=== PATIENT | male | born 1965 | race Caucasian/White ===

== ENCOUNTER 2020-01-15 16:58 | Emergency (ER) | payer SELFPAY ==
[~2020-01-15] VITALS: Ht 180.3 cm; Wt 96.2 kg
--- OUTSIDE RECORDS SUMMARY | 2020-01-15 17:07 | XMS REPORT | Continuity of Care Document ---
Author Author [facility] Organization [facility] Address [address] [place] [address] [address]. [address] [place] [address] Phone Unavailable Care Team Providers Care Capacity Planning Analyst Name Role Phone NO, PCP PCP Unavailable Mili HOANG Attshayna Unavailable Problems This patient has no known problems. Allergies, Adverse Reactions, Alerts This patient has no known allergies or adverse reactions. Medications This patient has no known medications. Procedures Procedure Date / Time Performed Performing Clinician Sour e Computed tomography of abdomen and pelvis with contrast 2018 00:00:00 DANNY HOANG [facility] Encounters Start Date/Time End Date/Time Encounter [facility] Ad[facility] ID Source 2019-03-03 20:44:00 2019-03-04 03:06:00 Departed Emergency Room 1 DANNY HOANG [facility] [id number] [facility] Results Test Description Test Time Test Comments Results Result Comments Source CT ABDOMEN/PELVIS W 2019-03-04 01:50:00 [facility] [address] [place] [id number] Patient Name: ANNALISE BIANCHI MR #: [id number] : 1965 Age/Sex: 53/M Req #: [id number] Adm Physician: Ordered by: DANNY HOANG MD Report #: [id number] Location: ER Room/Bed: Procedure: [id number] CT/CT ABDOMEN/PELVIS W Exam Date: 03/04/19 Exam Time: 50 REPORT STATUS: Signed EXAM: CT Abdomen and Pelvis WITH contrast INDICATION: Periumbilical pain COMPARISON: None. TECHNIQUE: Abdomen and pelvis were scanned utilizing a multidetector helical scanner from the lung base to the pubic symphysis after administration of IV contrast. Coronal and sagittal reformations were obtained. Routine protocol was performed. Scan was performed when during portal venous phase. IV CONTRAST: 100 mL of Isovue 370 ORAL CONTRAST: Water COMPLICATIONS: None RADIATION DOSE: Total DLP: 662 mGy*cm Estimated effective dose: (DLP x 0.015 x size factor) mSv CTDIvol has been reviewed. It is below the limits set by the Radiation Protocol Committee (RPC). Dose modulation, iterative reconstruction, and/or weight based adjustment of the mA/kV was utilized to reduce the radiation dose to as low as reasonably achievable. FINDINGS: LINES and TUBES: None. LOWER THORAX: Left lateral basilar scarring/atelectasis with elevated left hemidiaphragm. HEPATOBILIARY: Diffuse decreased hepatic attenuation. The liver is enlarged, measures 19.9 cm in craniocaudal dimension in the right midclavicular line. A 0.9 cm hypodensity in the right hepatic lobe is too small to characterize, likely benign. No biliary ductal dilation. GALLBLADDER: The gallbladder is distended and measures up to 9.8 cm in long axis. No radio-opaque stones or sludge. No wall thickening. No pericholecystic fluid. SPLEEN: No splenomegaly. PANCREAS: No focal masses or ductal dilatation. ADRENALS: No adrenal nodules KIDNEYS/URETERS: Kidneys enhance symmetrically. No hydronephrosis. No cystic or solid mass lesions. No stones. GI TRACT: No abnormal distention, wall thickening, or evidence of bowel obstruction. Appendix is normal. PELVIC ORGANS/BLADDER: Unremarkable. LYMPH NODES: No lymphadenopathy. VESSELS: Atherosclerotic calcifications in the aorta and and major branches. PERITONEUM / RETROPERITONEUM: No free air or fluid. BONES: Advanced degenerative changes in the lower lumbar spine with minimal anterolisthesis of L4 on L5 where there is probable canal and foraminal stenosis. SOFT TIS SUES: Fat-containing right inguinal hernia without evidence of stranding in relation.. IMPRESSION: 1. Distended gallbladder without other evidence of cholecystitis. Consider right upper quadrant ultrasound for further evaluation. 2. Advanced degenerative changes in the lower lumbar spine with minimal anterolisthesis of L4 on L5 where there is probable canal and foraminal stenosis. 3. Hepatomegaly with hepatic steatosis. Signed by: Goyo Maurer DO on 03/04/2019 1:58 AM Dictated By: GOYO MAURER DO 7 Transcribed By: JACLYN on 03/04/19157 COPY TO: DANNY HOANG MD Urine WBC 2019-03-04 01:46:00 Test Item Urine WBC (test code = 5821-4) 6-10 0-5 H [facility] [id number] 01:46:00* Test Item Value Reference Range Interpretation Comments Urine RBC (test code = 05087-8) 6-10 0-5 H [facility] Fzbimmia2037-72-35 01:46:00* Test Item Value Reference Range Interpretation Comments Urine Bacteria (test code = 01660-2) FEW NONE [facility] Epithelial Joluh8374-86-38 01:46:00 * Test Item Value Reference Range Interpretation Comments Urine Epithelial Cells (test code = 03275-4) FEW NONE [facility] Hyaline Tqbqy2679-63-42 01:46:00* Test Item Value Reference Range Interpretation Comments Urine Hyaline Casts (test code = 84378-9) 2-5 0-1 H [facility] Ymgrz7792-08-06 01:40:00* Test Item Value Reference Range Interpretation Comments Urine Color (test code = 5778-6) ORANGE YELLOW H [facility] Hrofhlh9997-38-26 01:40:00* Test Item Value Reference Range Interpretation Comments Urine Clarity (test code = 33092-8) SL CLOUDY CLEAR H [facility] Specific Mreudhl9082-63-65 01:40:00 * Test Item Value Reference Range Interpretation Comments Urine Specific [place] (test code = 5811-5) 1.025 1.010-1.02 5 [facility] nT1637-02-45 01:40:00* Test Item Value Reference Range Interpretation Comments Urine pH (test code = 19660-3) 6.5 5-7 [facility] Leukocyte Swxmkatt4866-68-75 01:40:00* Test Item Value Reference Range Interpretation Comments Urine Leukocyte Esterase (test code = 59149-1) NEGATIVE NEGATIV E [facility] Mbtpnfo5315-18-67 01:40:00* Test Item Value Reference Range Interpretation Comments Urine Nitrite (test code = 39649-6) NEGATIVE NEGATIVE [facility] Jltvbzr9090-52-90 01:40:00* Test Item Value Reference Range Interpretation Comments Urine Protein (test code = 24522-0) 3+ NEGATIVE H [facility] Glucose (UA)2019-03-04 01:40:00* Test Item Value Reference Range Interpretation Comments Urine Glucose (UA) (test code = 03591-5) NEGATIVE NEGATIVE [facility] Qffdgpk1031-66-93 01:40:00* Test Item Value Reference Range Interpretation Comments Urine Ketones (test code = 85421-1) 1+ NEGATIVE H [facility] Coijokugkugm5822-43-96 01:40:00* Test Item Value Reference Range Interpretation Comments Urine Urobilinogen (test code = 59290-0) 0.2 0.2-1 [facility] Xrtcvedbg7400-26-00 01:40:00* Test Item Value Reference Range Interpretation Comments Urine Bilirubin (test code = 1977-8) MODERATE NEGATIVE [facility] Virow1947-52-02 01:40:00* Test Item Value Reference Range Interpretation Comments Urine Blood (test code = 48139-9) 1+ NEGATIVE [facility] CampusEthyl Alcohol Savmv8683-27-64 22:09:00* Test Item Value Reference Range Interpretation Comments Ethyl Alcohol Level (test code = 5643-2) < 10.0 0.0-10.0 [facility] CampusCreatine Kinase BW8883-04-63 22:06:00* Test Item Value Reference Range Interpretation Comments Creatine Kinase MB (test code = 32349-7) 3.70 0-5.0 [facility] CampusTroponin [id number] 22:06:00* Test Item Value Reference Range Interpretation Comments Troponin I (test code = BGZ6593) 0.060 0-0.300 [facility] Vtbst5387-76-76 21:59:00* Test Item Value Reference Range Interpretation Comments Sodium Level (test code = 2951-2) 143 136-145 [facility] CampusPotassium Wgmgs8245-36-95 21:59:00* Test Item Value Reference Range Interpretation Comments Potassium Level (test code = 2823-3) 4.3 3.5-5.1 [facility] CampusChloride Nayjl7361-61-14 21:59:00* Test Item Value Reference Range Interpretation Comments Chloride Level (test code = 2075-0) 99 98-107 [facility] CampusCarbon Dioxide Tgozt5772-13-11 21:59:00* Test Item Value Reference Range Interpretation Comments Carbon Dioxide Level (test code = 2028-9) 25 22-29 [facility] CampusAnion Dkl3115-32-44 21:59:00* Test Item Value Reference Range Interpretation Comments Anion Gap (test code = 81337-3) 23.3 8-16 H [facility] CampusBlood Urea Ntmwmzdc2477-64-64 21:59:00* Test Item Value Reference Range Interpretation Comments Blood Urea Nitrogen (test code = 3094-0) 14 7- [facility] CampusCreatinine2019-10-24 21:59:00* Test Item Value Reference Range Interpretation Comments Creatinine (test code = 2160-0) 1.06 0.72-1.25 [facility] CampusBUN/Creatinine Cudde7782-37-54 21:59:00* Test Item Value Reference Range Interpretation Comments BUN/Creatinine Ratio (test code = 3097-3) 13 6- [facility] CampusEstimat Glomerular Filtration Rate 2019-03-03 21:59:00* Test Item Value Reference Range Interpretation Comments Estimat Glomerular Filtration Rate (test code = 722904647) > 60 >60 Ranges were taken from the National Kidney Disease Education Program and the [facility] Kidney Foundation literature.Reference ranges:60 or greater: Zhpqir24-40 ( for 3 consecutive months): Chronic kidney disease 15 or less: Kidney failureThe Hospitals of Providence East CampusGlucose Lwspx5061-65-84 21:59:00* Test Item Value Reference Range Interpretation Comments Glucose Level (test code = NKE8983) 119 74-118 H [facility] CampusCalcium Pwjqo2652-89-81 21:59:00* Test Item Value Reference Range Interpretation Comments Calcium Level (test code = 30624-4) 11.4 8.4-10.2 H [facility] CampusTotal Ezhnlypem1883-52-36 21:59:00* Test Item Value Reference Range Interpretation Comments Total Bilirubin (test code = 1975-2) 1.4 0.2-1.2 H [facility] CampusAspartate Amino Transf (AST/SGOT) 2019-03-03 21:59:00* Test Item Value Reference Range Interpretation Comments Aspartate Amino Transf (AST/SGOT) (test code = Aspartate Amino Transf (AST/SGOT)) 102 5-34 H [facility] CampusAlanine Aminotransferase (ALT/SGPT) 2019-03-03 21:59:00* Test Item Value Reference Range Interpretation Comments Alanine Aminotransferase (ALT/SGPT) (test code = 1742-6) 40 0-55 [facility] CampusTotal Iagbdec2434-52-32 21:59:00* Test Item Value Reference Range Interpretation Comments Total Protein (test code = 2885-2) 8.6 6.5-8.1 H [facility] CampusAlbumin2019-10-24 21:59:00* Test Item Value Reference Range Interpretation Comments Albumin (test code = 1751-7) 4.3 3.5-5.0 [facility] CampusGlobulin2019-10-24 21:59:00* Test Item Value Reference Range Interpretation Comments Globulin (test code = 25108-1) 4.3 2.3-3.5 H [facility] CampusAlbumin/Globulin Voxnj8522-69-31 21:59:00 * Test Item Value Reference Range Interpretation Comments Albumin/Globulin Ratio (test code = 1759-0) 1.0 0.8-2.0 [facility] CampusAlkaline Bvufhiqemun8578-44-01 21:59:00* Test Item Value Reference Range Interpretation Comments Alkaline Phosphatase (test code = 6768-6) 92 40-150 [facility] CampusCreatine Onxqzm7818-73-39 21:59:00* Test Item Value Reference Range Interpretation Comments Creatine Kinase (test code = 2157-6) 137 30-200 [facility] CampusAmylase Naiud0418-90-50 21:59:00* Test Item Value Reference Range Interpretation Comments Amylase Level (test code = 1798-8) 102 25-125 [facility] CampusLipase2019-10-24 21:59:00* Test Item Value Reference Range Interpretation Comments Lipase (test code = 3040-3) 29 8-78 [facility] CampusProthrombin Cefk8112-86-58 21:53:00* Test Item Value Reference Range Interpretation Comments Prothrombin Time (test code = 5902-2) 13.2 11.9-14.5 [facility] CampusProthromb Time International Ratio 2019-03-03 21:53:00* Test Item Value Reference Range Interpretation Comments Prothromb Time International Ratio (test code = 6301-6) 0.95 Oral Anticoagulant Therapy INR Values:1. Low Intensity Therapy 1.5 - 2.02 . Moderate Intensity Therapy 2.0 - 3.03. High Intensity Therapy(1) 2.5 - 3. 54. High Intensity Therapy(2) 3.0 - 4.05. Panic Value INR > 5.0 [facility] CampusActivated Partial Thromboplast Time 2019-03-03 21:53:00* Test Item Value Reference Range Interpretation Comments Activated Partial Thromboplast Time (test code = 49530-1) 28.1 23.8-35.5 [facility] CampusWhite Blood Qwlwu2072-48-20 21:44:00* Test Item Value Reference Range Interpretation Comments White Blood Count (test code = 6690-2) 5.65 4.8-10.8 [facility] CampusRed Blood Ewpxn0460-32-88 21:44:00* Test Item Value Reference Range Interpretation Comments Red Blood Count (test code = 789-8) 3.58 4.3-5.7 L [facility] CampusHemoglobin2019-10-24 21:44:00* Test Item Value Reference Range Interpretation Comments Hemoglobin (test code = 14407-1) 13.9 14.0-18.0 L [facility] CampusHematocrit2019-10-24 21:44:00* Test Item Value Reference Range Interpretation Comments Hematocrit (test code = 4544-3) 39.2 38.2-49.6 [facility] CampusMean Corpuscular Vlceoa5830-73-31 21:44:00* Test Item Value Reference Range Interpretation Comments Mean Corpuscular Volume (test code = 787-2) 109.5 81-99 H [facility] CampusMean Corpuscular Rkgvwbgpvt6222-83-96 21:44:00* Test Item Value Reference Range Interpretation Comments Mean Corpuscular Hemoglobin (test code = 785-6) 38.8 28-32 H [facility] Corpuscular Hemoglobin Concent 2019-03-03 21:44:00* Test Item Value Reference Range Interpretation Comments Mean Corpuscular Hemoglobin Concent (test code = 786-4) 35.5 31-35 H [facility] CampusRed Cell Distribution Uqlhy1189-79-52 21:44:00* Test Item Value Reference Range Interpretation Comments Red Cell Distribution Width (test code = 45396-5) 13.0 11.7 -14.4 [facility] CampusPlatelet Wdedt8336-44-01 21:44:00* Test Item Value Reference Range Interpretation Comments Platelet Count (test code = 777-3) 99 140-360 L [facility] CampusNeutrophils (%) (Auto)2019-03-03 21:44:00 * Test Item Value Reference Range Interpretation Comments Neutrophils (%) (Auto) (test code = 61440-2) 80.7 38.7-80.0 H [facility] CampusLymphocytes (%) (Auto)2019-03-03 21:44:00 * Test Item Value Reference Range Interpretation Comments Lymphocytes (%) (Auto) (test code = 736-9) 8.1 18.0-39.1 L [facility] CampusMonocytes (%) (Auto)2019-03-03 21:44:00* Test Item Value Reference Range Interpretation Comments Monocytes (%) (Auto) (test code = 5905-5) 8.8 4.4-11.3 [facility] CampusEosinophils (%) (Auto)2019-03-03 21:44:00 * Test Item Value Reference Range Interpretation Comments Eosinophils (%) (Auto) (test code = 713-8) 1.4 0.0-6.0 [facility] CampusBasophils (%) (Auto)2019-03-03 21:44:00* Test Item Value Reference Range Interpretation Comments Basophils (%) (Auto) (test code = 706-2) 0.5 0.0-1.0 [facility] CampusIM GRANULOCYTES %2019-03-03 21:44:00* Test Item Value Reference Range Interpretation Comments IM GRANULOCYTES % (test code = IM GRANULOCYTES %) 0.5 0.0- 1.0 [facility] CampusNeutrophils # (Auto)2019-03-03 21:44:00* Test Item Value Reference Range Interpretation Comments Neutrophils # (Auto) (test code = 751-8) 4.6 2.1-6.9 [facility] CampusLymphocytes # (Auto)2019-03-03 21:44:00* Test Item Value Reference Range Interpretation Comments Lymphocytes # (Auto) (test code = 66533-7) 0.5 1.0-3.2 L [facility] CampusMonocytes # (Auto)2019-03-03 21:44:00* Test Item Value Reference Range Interpretation Comments Monocytes # (Auto) (test code = 742-7) 0.5 0.2-0.8 [facility] CampusEosinophils # (Auto)2019-03-03 21:44:00* Test Item Value Reference Range Interpretation Comments Eosinophils # (Auto) (test code = 711-2) 0.1 0.0-0.4 [facility] CampusBasophils # (Auto)2019-03-03 21:44:00* Test Item Value Reference Range Interpretation Comments Basophils # (Auto) (test code = 704-7) 0.0 0.0-0.1 [facility] CampusAbsolute Immature Granulocyte (auto 2019-03-03 21:44:00* Test Item Value Reference Range Interpretation Comments Absolute Immature Granulocyte (auto (pili t code = Absolute Immature Granulocyte (auto) 0.03 0-0.1 [facility]
[2020-01-15] MEDS ORDERED: SODIUM CHLORIDE 0.9% 1000ML 1,000 ML IV STA (17:12)
[2020-01-15 17:31] LABS: BASOPHILS % 0.8 % (0.0-1.0); EOSINOPHILS # (AUTO) 0.1 (0.0-0.4); EOSINOPHILS % 1.2 % (0.0-6.0); HEMATOCRIT 33.5 % (38.2-49.6); HEMOGLOBIN 11.8 g/dL (14.0-18.0); LYMPHOCYTES # (AUTO) 0.9 (1.0-3.2); LYMPHOCYTES % 17.7 % (18.0-39.1); MEAN CORPUSCULAR HEMOGLOBIN 38.6 pg (28-32); MEAN CORPUSCULAR HGB CONC 35.2 g/dL (31-35); MEAN CORPUSCULAR VOLUME 109.5 fL (81-99); MONOCYTES # (AUTO) 0.5 (0.2-0.8); MONOCYTES % 9.5 % (4.4-11.3); NEUTROPHILS # (AUTO) 3.5 (2.1-6.9); NEUTROPHILS % 70.2 % (38.7-80.0); PLATELET COUNT 79 x10e3/uL (140-360); RED BLOOD COUNT 3.06 x10e6/uL (4.3-5.7); RED CELL DISTRIBUTION WIDTH 12.7 % (11.7-14.4)
[2020-01-15 17:44] LABS: INR 0.95; PROTHROMBIN TIME 13.2 seconds (11.9-14.5)
[2020-01-15 17:52] LABS: ALANINE AMINOTRANSFERASE 18 IU/L (0-55); ALBUMIN 4.2 g/dL (3.5-5.0); ALBUMIN/GLOBULIN RATIO 1.2 (0.8-2.0); ALKALINE PHOSPHATASE 95 IU/L (40-150); ANION GAP 21.6 mmol/L (8-16); BLOOD UREA NITROGEN 9 mg/dL (7-26); BUN/CREATININE RATIO 8 (6-25); CARBON DIOXIDE 18 mmol/L (22-29); CHLORIDE 100 mmol/L (98-107); CREATINE KINASE 126 IU/L (30-200); EST GLOMERULAR FILTRATION RATE > 60 ML/MIN (60-); GLUCOSE 100 mg/dL (74-118); POTASSIUM 3.6 mmol/L (3.5-5.1); SODIUM 136 mmol/L (136-145)
--- NOTE | 2020-01-15 17:57 | Diagnostic Imaging Report ---
EXAMINATION: CHEST SINGLE (PORTABLE) INDICATION: near-syncope COMPARISON: None FINDINGS: AP view TUBES and LINES: None. . LUNGS/PLEURA: Lungs are well inflated. There is left basilar opacity which could be due to effusion or atelectasis. Pneumonia could be considered in appropriate clinical setting. There is no evidence of pulmonary edema.. There is no pneumothorax. HEART AND MEDIASTINUM: The cardiomediastinal silhouette is unremarkable. BONES AND SOFT TISSUES: No acute osseous lesion. Soft tissues are unremarkable. UPPER ABDOMEN: No free air under the diaphragm. IMPRESSION: Left basilar opacity could be due to effusion or atelectasis. Pneumonia could be considered in appropriate clinical setting Signed by: Kevan Frausto MD on 01/15/2020 5:53 PM
[2020-01-15 18:04] LABS: CALCIUM 8.8 mg/dL (8.4-10.2)
--- NOTE | 2020-01-15 18:04 | Diagnostic Imaging Report ---
Examination: CT head without contrast Clinical Indication: ^N ^NEAR-SYNCOPE, SLURRED SPEECH. Technique: Transaxial noncontrast images from the skull base through the vertex were obtained. Sagittal and coronal reformatted images were done. Dose modulation, iterative reconstruction, and/or weight based adjustment of the mA/kV was utilized to reduce the radiation dose to as low as reasonably achievable. Comparison: None. Findings: Scalp: No abnormalities. Bones: Intact. No fractures. No blastic or lytic lesions. Brain sulci: Moderate to severe volume loss for patient's age. Ventricles: No hydrocephalus. . Extra-axial space: No abnormalities. Parenchyma: There are subtle patchy areas of low-attenuation within subcortical and periventricular white matter, nonspecific, but could represent microvascular ischemic disease. No masses, hemorrhage, or acute or chronic cortical based vascular insults. Suprasellar region: No abnormalities. Craniocervical junction: The foramen magnum is patent. No Chiari one malformation. Impression: 1. No acute intracranial finding. 2. Moderate to severe volume loss and chronic microvascular ischemic change. Signed by: Dr. Carrie Grant M.D. on 01/15/2020 6:01 PM
[2020-01-15 18:05] LABS: MAGNESIUM 1.1 MG/DL (1.3-2.1)
[2020-01-15 18:07] LABS: EOSINOPHILS % (MANUAL) 2 % (0-7); LYMPHOCYTES % (MANUAL) 19 % (19-48); MONOCYTES % (MANUAL) 7 % (3.4-9.0); NEUTROPHILS % (MANUAL) 71 % (40-74)
[2020-01-15 18:08] LABS: PLATELET ESTIMATE SLIGHTLY DECREASED; PLATELET MORPHOLOGY COMMENT NORMAL
--- NOTE | 2020-01-15 18:08 | Emergency Department Note ---
History of Present Illnes History of Present Illness Chief Complaint: General Medicine Complaints History of Present Illness This is a 54 year old male working outside today, drank a couple drinks, then helped neighbor with a generator outside, says his legs "felt like jelly" and went to the ground, no fall, no trauma, no LOC. Historian: Patient Arrival Mode: [facility] Treatment FX ARTIST: IV Picc Nurse Required: No Onset (how long ago): minute(s) Quality: no pain Radiation: Reports non-radiation Severity: moderate Onset quality: gradual Timing of current episode: sporadic Chronicity: new Context: Denies recent illness Relieving factors: none Exacerbating factors: none Associated symptoms: Reports denies other symptoms Treatments prior to arrival: none (TONJA SMITH MD) Past Medical/Family History Physician Review I have reviewed the patient's past medical and family history. Any updates have been documented here. (TONJA SMITH MD) Past Medical History Recent Fever: No Clinical Suspicion of Infectio: No New/Unexplained Change in Ment: No Past Medical History: Hypertension Other Medical History: PANCREATITIS Past Surgical History: None (TONJA SMITH MD) Social History Smoking Cessation: Current every day smoker Alcohol Use: Social Any Illegal Drug Use: No TB Exposure/Symptoms: No Physically hurt or threatened: No (TONJA SMITH MD) Family History Family history of heart diseas: No (TONJA SMITH MD) Other Last Tetanus: UTD Any Pre-Existing Lines (PICC,: No (TONJA SMITH MD) Review of Systems Review of Systems Constitutional: Reports as per HPI, Reports weakness EENTM: Reports no symptoms Cardiovascular: Reports no symptoms Respiratory: Reports no symptoms Gastrointestinal: Reports no symptoms Genitourinary: Reports no symptoms Musculoskeletal: Reports no symptoms Integumentary: Reports no symptoms Neurological: Reports as per HPI, Reports weakness Psychological: Reports no symptoms Endocrine: Reports no symptoms Hematological/Lymphatic: Reports no symptoms (TONJA SMITH MD) Physical Exam Related Data Allergies: Coded Allergies: No Known Allergies (Unverified , 03/03/19) Triage Vital Signs Vital Signs Date Time Temp Pulse Resp B/P (MAP) Pulse Ox O2 Delivery O2 Flow Rate FiO2 01/15/20 17:06 98.3 110 20 141/94 97 Room Air Vital signs reviewed: Yes (TONJA SMITH MD) Physical Exam CONSTITUTIONAL Constitutional: Present well-developed, Present well-nourished HENT HENT: Present normocephalic, Present atraumatic, Present oropharynx clear/moist, Present nose normal HENT L/R: Present left ext ear normal, Present right ext ear normal EYES Eyes: Reports PERRL, Reports conjunctivae normal NECK Neck: Present ROM normal, Present supple PULMONARY Pulmonary: Present effort normal, Present breath sounds normal CARDIOVASCULAR Cardiovascular: Present regular rhythm, Present heart sounds normal, Present capillary refill normal, Present normal rate GASTROINTESTINAL Abdominal: Present soft, Present nontender, Present bowel sounds normal GENITOURINARY Genitourinary: Present exam deferred SKIN Skin: Present warm, Present dry MUSCULOSKELETAL Musculoskeletal: Present ROM normal NEUROLOGICAL Neurological: Present alert, Present oriented x 3, Present DTRs normal, Present no gross motor or sensory deficits, Present other (mild slurred speech); Absent cranial nerve deficit, Absent sensory deficit, Absent abnormal coordination, Absent abnormal gait, Absent weakness PSYCHOLOGICAL Psychological: Present mood/affect normal, Present judgement normal (TONJA SMITH MD) Results Laboratory Laboratory Laboratory Tests Test 01/15/20 17:00 (TONJA SMITH MD) Procedures 12 Lead ECG Interpretation ECG Interpretation : ECG: ECG 1 Picc Nurse: Interpreted by ED physician Date: Jan 15, 2020 Time: 17:23 Rhythm: sinus rhythm Rate: normal (95) QRS axis: normal ST segments normal: Yes T waves normal: Yes Clinical Impression: normal ECG (TONJA SMITH MD) Assessment & Plan Medical Decision Making MDM weakness after working outside for hours - cbc, chem, ecg, cardiacs, cxr, ct head, uds, etoh level - eval for dehydration, renal insuff, stemi/nstemi, rhabd omyolysis, etoh intox, drug use, cerebral bleed (TONJA SMITH MD) MDM PT WTIH ETOH OF 274 (ELEAZAR MARTEL MD) Reassessment Reassessment Dr Martel to f/u rad studies, labs, dispo (TONJA SMITH MD) Reassessment time: 19:21 Reassessment PT ALERT AND ORIENTED TIMES 3, STATES WILL CALL HIS SON TO PICK HIM UP AND TAKE HIM HOME (ELEAZAR MARTEL MD) Assessment & Plan Final Impression: (1) Dehydration (TONJA SMITH MD) Final Impression: (1) Dehydration (2) Alcohol intoxication (ELEAZAR MARTEL MD) Depart Disposition: HOME, SELF-CARE Last Vital Signs Date Time Temp Pulse Resp B/P (MAP) Pulse Ox O2 Delivery O2 Flow Rate FiO2 01/15/20 17:15 98.3 96 18 152/86 97 Room Air (TONJA SMITH MD) Medications in the ED Sodium Chloride 1,000 ml @ 0 mls/hr Q0M STAT IV Last administered on 01/15/20at 17:17; Admin Dose 200 MLS/HR; Start 01/15/20 at 17:12; Stop 01/15/20 at 17:15; Status DC (TONJA SMITH MD) TONJA SMITH MD Jan 15, 2020 18:08 ELEAZAR MARTEL MD Jan 15, 2020 19:22
[2020-01-15 18:09] LABS: RBC MORPHOLOGY COMMENT ABNORMAL
[2020-01-15] MEDS ORDERED: MAGNESIUM SULFATE 2GM/50ML 50 ML IV ONE (18:15)
[2020-01-15 19:16] LABS: AMPHETAMINES SCREEN,URINE NEGATIVE (NEGATIVE); BENZODIAZEPINES SCREEN,URINE NEGATIVE (NEGATIVE); PHENCYCLIDINE SCREEN,URINE NEGATIVE (NEGATIVE)
--- NOTE | 2020-01-15 19:19 | NUR ---
SODIUM CHLORIDE 0.9% BOLUS INFUSION ADMINISTED AT THIS TIME.
[2020-01-15 19:23] LABS: CLARITY,URINE SL CLOUDY (CLEAR); COLOR,URINE YELLOW (YELLOW)
[2020-01-15 19:24] LABS: BILIRUBIN,URINE NEGATIVE (NEGATIVE); KETONES,URINE NEGATIVE (NEGATIVE); LEUKOCYTE ESTERASE ,URINE NEGATIVE (NEGATIVE); NITRITE,URINE NEGATIVE (NEGATIVE); PROTEIN,URINE DIPSTICK >=300 (NEGATIVE); URINE UROBILINOGEN 0.2 mg/dL (0.2 - 1)
[2020-01-15 19:37] LABS: BACTERIA,URINE FEW /HPF; EPITHELIAL CELLS,URINE FEW /LPF; MUCUS,URINE FEW (RARE); RBC,URINE 0-5 /HPF (0-5); WBC,URINE (MAN) 0-5 /HPF (0-5)
[2020-01-15 20:05] VITALS: BP 138/81
== END 2020-01-15 20:09 | disposition home or self-care (01) ==
LOC: ER 17:06
DX: E86.0 Dehydration (principal); F10.129 Alcohol abuse with intoxication, unspecified; I10 Essential (primary) hypertension; Z86.39 Personal history of other endocrine, nutritional and metabolic disease; F17.210 Nicotine dependence, cigarettes, uncomplicated
CPT/HCPCS: 36415; 70450; 71045; 80053; 80307; 80320; 81001; 82550; 82553; 83735; 84484; 85025; 85610; 85730; 87086; 93005; 99284; J3475; J7030

== ENCOUNTER 2022-01-15 13:40 | Inpatient (IN) | payer SELFPAY ==
[~2022-01-15] VITALS: Ht 182.9 cm; Wt 100.7 kg
[2022-01-15 14:35] LABS: BASOPHILS # (AUTO) 0.1 (0.0-0.1); BASOPHILS % 0.7 % (0.0-1.0); EOSINOPHILS # (AUTO) 0.3 (0.0-0.4); EOSINOPHILS % 3.5 % (0.0-6.0); HEMATOCRIT 22.2 % (38.2-49.6); HEMOGLOBIN 7.3 g/dL (14.0-18.0); LYMPHOCYTES # (AUTO) 2.1 (1.0-3.2); LYMPHOCYTES % 23.3 % (18.0-39.1); MEAN CORPUSCULAR HEMOGLOBIN 37.1 pg (28-32); MEAN CORPUSCULAR HGB CONC 32.9 g/dL (31-35); MEAN CORPUSCULAR VOLUME 112.7 fL (81-99); MONOCYTES # (AUTO) 0.7 (0.2-0.8); MONOCYTES % 7.9 % (4.4-11.3); NEUTROPHILS # (AUTO) 5.7 (2.1-6.9); PLATELET COUNT 274 x10e3/uL (140-360); RED BLOOD COUNT 1.97 x10e6/uL (4.3-5.7); RED CELL DISTRIBUTION WIDTH 14.6 % (11.7-14.4)
[2022-01-15 14:46] LABS: INR 1.08
[2022-01-15 14:47] LABS: PARTIAL THROMBOPLASTIN TIME 29.7 seconds (23.8-35.5)
[2022-01-15 14:53] LABS: ALANINE AMINOTRANSFERASE 10 IU/L (0-55); ALBUMIN 2.8 g/dL (3.5-5.0); ALBUMIN/GLOBULIN RATIO 0.7 (0.8-2.0); ALKALINE PHOSPHATASE 144 IU/L (40-150); ANION GAP 19.8 mmol/L (8-16); BLOOD UREA NITROGEN 15 mg/dL (7-26); BUN/CREATININE RATIO 11 (6-25); CALCIUM 8.9 mg/dL (8.4-10.2); CARBON DIOXIDE 19 mmol/L (22-29); CHLORIDE 97 mmol/L (98-107); CREATININE, SERUM 1.39 mg/dL (0.72-1.25); GLUCOSE 93 mg/dL (74-118); POTASSIUM 4.8 mmol/L (3.5-5.1); SODIUM 131 mmol/L (136-145)
[2022-01-15] MEDS: Vancomycin IV 1 GM in SODIUM CHLORIDE 0.9% 250ML 250 ML IV SCH ×2 (15:10→21:00)
[2022-01-15 16:43] LABS: CLARITY,URINE CLEAR (CLEAR); COLOR,URINE YELLOW (YELLOW); KETONES,URINE NEGATIVE (NEGATIVE); LEUKOCYTE ESTERASE ,URINE NEGATIVE (NEGATIVE); NITRITE,URINE NEGATIVE (NEGATIVE); PROTEIN,URINE DIPSTICK NEGATIVE (NEGATIVE)
[2022-01-15 16:44] LABS: AMPHETAMINES SCREEN,URINE NEGATIVE (NEGATIVE); BENZODIAZEPINES SCREEN,URINE NEGATIVE (NEGATIVE); PHENCYCLIDINE SCREEN,URINE NEGATIVE (NEGATIVE); URINE UROBILINOGEN 0.2 mg/dL (0.2 - 1)
[2022-01-15] MEDS ORDERED: FUROSEMIDE INJ 10 MG/ML 4 ML VIAL IV ONE (17:00)
[2022-01-15] MEDS ORDERED: ONDANSETRON HCL INJ 2MG/ML 2ML 2 MG/ML VIAL IV PRN (17:00)
[2022-01-15] MEDS ORDERED: SODIUM CHLORIDE FLUSH 10 ML SYR INJ PRN (17:00)
[2022-01-15 17:01] LABS: RBC,URINE 0-5 /HPF (0-5); WBC,URINE (MAN) 0-5 /HPF (0-5)
[2022-01-15 20:00] VITALS: BP 176/91
[2022-01-15 21:35] VITALS: BP 176/91
[2022-01-15 21:43] VITALS: BP 176/91
[2022-01-15] MEDS ORDERED: POLYETHYLENE GLYCOL 3350 17 GM PACK PO PRN (23:45)
[2022-01-15] MEDS ORDERED: HYDRALAZINE HCL 20 MG/ML VIAL IV PRN (23:45)
[2022-01-16 00:13] VITALS: BP 158/97
[2022-01-16 05:31] VITALS: BP 160/90
[2022-01-16 06:11] LABS: BASOPHILS % 0.6 % (0.0-1.0); EOSINOPHILS # (AUTO) 0.2 (0.0-0.4); EOSINOPHILS % 2.7 % (0.0-6.0); HEMATOCRIT 23.1 % (38.2-49.6); HEMOGLOBIN 7.3 g/dL (14.0-18.0); LYMPHOCYTES # (AUTO) 0.8 (1.0-3.2); LYMPHOCYTES % 13.3 % (18.0-39.1); MEAN CORPUSCULAR HEMOGLOBIN 36.7 pg (28-32); MEAN CORPUSCULAR HGB CONC 31.6 g/dL (31-35); MEAN CORPUSCULAR VOLUME 116.1 fL (81-99); MONOCYTES # (AUTO) 0.5 (0.2-0.8); MONOCYTES % 7.9 % (4.4-11.3); NEUTROPHILS # (AUTO) 4.7 (2.1-6.9); NEUTROPHILS % 74.9 % (38.7-80.0); PLATELET COUNT 247 x10e3/uL (140-360); RED BLOOD COUNT 1.99 x10e6/uL (4.3-5.7); RED CELL DISTRIBUTION WIDTH 14.8 % (11.7-14.4)
[2022-01-16 06:30] LABS: ALBUMIN 2.8 g/dL (3.5-5.0); ALBUMIN/GLOBULIN RATIO 0.7 (0.8-2.0); ANION GAP 17.7 mmol/L (8-16); CALCIUM 9.2 mg/dL (8.4-10.2); CREATININE, SERUM 1.53 mg/dL (0.72-1.25); MAGNESIUM 1.5 MG/DL (1.3-2.1); PHOSPHORUS 4.3 MG/DL (2.3-4.7); POTASSIUM 4.7 mmol/L (3.5-5.1)
[2022-01-16 07:00] LABS: FERRITIN 1214.27 ng/mL (21.81-274.66); THYROID STIMULATING HORMONE 2.883 uIU/mL (0.350-4.940)
[2022-01-16 08:34] VITALS: BP 174/92
[2022-01-16] MEDS: OYST-CAL-D 500MG TABLET PO SCH ×2 (09:13→16:38)
[2022-01-16] MEDS: MAGNESIUM OXIDE 400 MG TAB PO SCH ×2 (09:13→16:38)
[2022-01-16] MEDS: MULTIVITAMINS/MINERALS TAB PO SCH (09:13)
[2022-01-16] MEDS: FAMOTIDINE 20 MG TAB PO SCH ×2 (09:14→16:27)
[2022-01-16] MEDS: ASCORBIC ACID 500 MG TAB PO SCH ×2 (09:14→16:38)
[2022-01-16] MEDS: ZINC SULFATE 50 MG CAP PO SCH ×2 (09:14→16:38)
[2022-01-16] MEDS: Vancomycin IV 1 GM in SODIUM CHLORIDE 0.9% 250ML 250 ML IV SCH ×2 (09:14→20:51)
[2022-01-16] MEDS: DOCUSATE SODIUM 100 MG CAP PO SCH ×2 (09:15→16:38)
[2022-01-16 09:26] LABS: PLATELET ESTIMATE ADEQUATE; PLATELET MORPHOLOGY COMMENT NORMAL; RBC MORPHOLOGY COMMENT NORMAL
[2022-01-16] MEDS: TRAMADOL HCL 50 MG TAB PO PRN ×2 (09:47→20:52)
[2022-01-16] MEDS ORDERED: SODIUM CHLORIDE 0.9% 250ML 250 ML ONE (09:48)
[2022-01-16] MEDS: AMLODIPINE BESYLATE 5 MG TAB PO SCH (16:27)
[2022-01-16] MEDS ORDERED: ACETAMINOPHEN 325 MG TAB PO ONE (16:40)
[2022-01-16] MEDS ORDERED: ENOXAPARIN 30 MG/0.3 ML SYR SC SCH (17:00)
[2022-01-16 19:46] VITALS: BP 174/92
[2022-01-16 20:00] VITALS: BP 157/90
[2022-01-16] MEDS ORDERED: ACETAMINOPHEN 325 MG TAB PO PRN (20:30)
[2022-01-17] VITALS (8 sets, daily range): BP systolic 150–170; BP diastolic 77–95
[2022-01-17] MEDS: TRAMADOL HCL 50 MG TAB PO PRN ×4 (04:24→23:17)
[2022-01-17 05:41] LABS: BASOPHILS % 0.7 % (0.0-1.0); EOSINOPHILS # (AUTO) 0.2 (0.0-0.4); HEMATOCRIT 21.2 % (38.2-49.6); LYMPHOCYTES # (AUTO) 0.9 (1.0-3.2); LYMPHOCYTES % 16.8 % (18.0-39.1); MEAN CORPUSCULAR HEMOGLOBIN 37.4 pg (28-32); MEAN CORPUSCULAR HGB CONC 32.1 g/dL (31-35); MEAN CORPUSCULAR VOLUME 116.5 fL (81-99); MONOCYTES # (AUTO) 0.5 (0.2-0.8); MONOCYTES % 9.3 % (4.4-11.3); NEUTROPHILS # (AUTO) 3.7 (2.1-6.9); NEUTROPHILS % 68.7 % (38.7-80.0); PLATELET COUNT 256 x10e3/uL (140-360); RED BLOOD COUNT 1.82 x10e6/uL (4.3-5.7); RED CELL DISTRIBUTION WIDTH 14.7 % (11.7-14.4)
[2022-01-17 06:00] LABS: ANION GAP 15.7 mmol/L (8-16); CALCIUM 9.3 mg/dL (8.4-10.2); CREATININE, SERUM 1.62 mg/dL (0.72-1.25); POTASSIUM 4.7 mmol/L (3.5-5.1)
[2022-01-17 06:05] LABS: HEMOGLOBIN 6.8 g/dL (14.0-18.0)
[2022-01-17 06:21] LABS: % IRON SATURATION 13 % (15-50); IRON 36 ug/dL (65-175); TOTAL IRON BINDING CAPACITY 286 ug/dL (261-478); TRANSFERRIN 204 mg/dL (174-364)
[2022-01-17] MEDS ORDERED: SODIUM CHLORIDE 0.9% 250ML 250 ML IV ONE (08:00)
[2022-01-17 08:16] LABS: PLATELET ESTIMATE ADEQUATE; PLATELET MORPHOLOGY COMMENT NORMAL
[2022-01-17 08:17] LABS: HYPOCHROMASIA SLIGHT; RBC MORPHOLOGY COMMENT ABNORMAL
[2022-01-17] MEDS: MULTIVITAMINS/MINERALS TAB PO SCH (08:47)
[2022-01-17] MEDS: ZINC SULFATE 50 MG CAP PO SCH ×2 (08:47→17:32)
[2022-01-17] MEDS: OYST-CAL-D 500MG TABLET PO SCH ×2 (08:47→17:31)
[2022-01-17] MEDS: FAMOTIDINE 20 MG TAB PO SCH ×2 (08:48→16:30)
[2022-01-17] MEDS: ASCORBIC ACID 500 MG TAB PO SCH ×2 (08:48→17:00)
[2022-01-17] MEDS: AMLODIPINE BESYLATE 5 MG TAB PO SCH (09:00)
[2022-01-17] MEDS: MAGNESIUM OXIDE 400 MG TAB PO SCH ×2 (09:00→17:32)
[2022-01-17] MEDS: BACITRACIN ZINC 15 GM OINT TOP SCH (09:00)
[2022-01-17] MEDS: DOCUSATE SODIUM 100 MG CAP PO SCH ×2 (09:00→17:00)
[2022-01-17] MEDS ORDERED: ONDANSETRON HCL 4 MG ORAL DISINTEGRATING TAB PO PRN (09:15)
[2022-01-17] MEDS ORDERED: SODIUM CHLORIDE 0.9% 250ML 250 ML ONE (12:48)
[2022-01-18] VITALS: BP 173/97
[2022-01-18] MEDS ORDERED: DIPHENHYDRAMINE HCL 25 MG CAP PO PRN
[2022-01-18] MEDS ORDERED: CYANOCOBALAMIN INJ 1,000 MCG/ML VIAL IM ONE (00:45)
[2022-01-18 04:00] VITALS: BP 156/80
[2022-01-18] MEDS: TRAMADOL HCL 50 MG TAB PO PRN (05:24)
[2022-01-18] MEDS: FAMOTIDINE 20 MG TAB PO SCH (07:30)
[2022-01-18 07:43] LABS: BASOPHILS % 0.5 % (0.0-1.0); EOSINOPHILS # (AUTO) 0.2 (0.0-0.4); EOSINOPHILS % 3.9 % (0.0-6.0); HEMATOCRIT 25.4 % (38.2-49.6); HEMOGLOBIN 8.4 g/dL (14.0-18.0); LYMPHOCYTES # (AUTO) 1.1 (1.0-3.2); LYMPHOCYTES % 17.7 % (18.0-39.1); MEAN CORPUSCULAR HEMOGLOBIN 36.2 pg (28-32); MEAN CORPUSCULAR HGB CONC 33.1 g/dL (31-35); MEAN CORPUSCULAR VOLUME 109.5 fL (81-99); MONOCYTES # (AUTO) 0.7 (0.2-0.8); NEUTROPHILS # (AUTO) 3.9 (2.1-6.9); NEUTROPHILS % 66.2 % (38.7-80.0); PLATELET COUNT 186 x10e3/uL (140-360); RED BLOOD COUNT 2.32 x10e6/uL (4.3-5.7); RED CELL DISTRIBUTION WIDTH 17.3 % (11.7-14.4)
[2022-01-18] MEDS ORDERED: LASIX40 MG PO (07:52)
[2022-01-18] MEDS ORDERED: NORVASC10 MG PO (07:53)
[2022-01-18 08:01] LABS: ANION GAP 17.3 mmol/L (8-16); CALCIUM 9.6 mg/dL (8.4-10.2); CREATININE, SERUM 1.48 mg/dL (0.72-1.25); POTASSIUM 4.3 mmol/L (3.5-5.1)
[2022-01-18] MEDS: MULTIVITAMINS/MINERALS TAB PO SCH (09:00)
[2022-01-18] MEDS: DOCUSATE SODIUM 100 MG CAP PO SCH (09:00)
[2022-01-18] MEDS: BACITRACIN ZINC 15 GM OINT TOP SCH (09:00)
[2022-01-18] MEDS ORDERED: IRON SUCROSE 100 MG in SODIUM CHLORIDE 0.9% 100 ML IV SCH (09:00)
[2022-01-18] MEDS ORDERED: CYANOCOBALAMIN INJ 1,000 MCG/ML VIAL IM SCH (09:00)
[2022-01-18] MEDS: OYST-CAL-D 500MG TABLET PO SCH (09:03)
[2022-01-18] MEDS: ZINC SULFATE 50 MG CAP PO SCH (09:03)
[2022-01-18] MEDS: ASCORBIC ACID 500 MG TAB PO SCH (09:03)
[2022-01-18] MEDS: AMLODIPINE BESYLATE 5 MG TAB PO SCH (09:03)
[2022-01-18] MEDS: MAGNESIUM OXIDE 400 MG TAB PO SCH (09:03)
[2022-01-18 09:08] VITALS: BP 170/99
== END 2022-01-18 10:40 | disposition home or self-care (01) | DRG 603 ==
LOC: ER 13:45 → ERHOLD 16:50 → MED/SURG2 19:29
PROVIDERS: ADMIT Internal Medicine; ATTEND Internal Medicine
PROC: 30233N1 Transfusion of Nonautologous Red Blood Cells into Peripheral Vein, Percutaneous Approach (ICD-10-PCS; principal; 2022-01-17)
DX: L03.113 Cellulitis of right upper limb (principal); E87.1 Hypo-osmolality and hyponatremia; N17.9 Acute kidney failure, unspecified; S42.212G Unspecified displaced fracture of surgical neck of left humerus, subsequent encounter for fracture with delayed healing; L03.114 Cellulitis of left upper limb; W19.XXXD Unspecified fall, subsequent encounter; F14.10 Cocaine abuse, uncomplicated; Y90.6 Blood alcohol level of 120-199 mg/100 ml; G62.9 Polyneuropathy, unspecified; F40.240 Claustrophobia; F10.20 Alcohol dependence, uncomplicated; Z74.09 Other reduced mobility; I12.9 Hypertensive chronic kidney disease with stage 1 through stage 4 chronic kidney disease, or unspecified chronic kidney disease; N18.9 Chronic kidney disease, unspecified; Z20.822 Contact with and (suspected) exposure to COVID-19; D50.9 Iron deficiency anemia, unspecified; S91.312D Laceration without foreign body, left foot, subsequent encounter; S91.311D Laceration without foreign body, right foot, subsequent encounter; K74.60 Unspecified cirrhosis of liver; Z53.29 Procedure and treatment not carried out because of patient's decision for other reasons
CPT/HCPCS: 0223U; 36415; 71045; 76705; 76770; 80048; 80053; 80061; 80202; 80307; 80320; 81001; 82270; 82607; 82728; 82746; 82948; 83036; 83540; 83735; 83880; 84100; 84443; 84466; 84484; 85025; 85045; 85610; 85730; 86850; 86900; 86920; 87040; 93005; 94760; 94799; 99251; 99284; J0360; J1650; J1756; J1940; J3370; J3420; J7050; P9016

== ENCOUNTER 2024-01-04 19:24 | Emergency (ER) | payer OTHER ==
[~2024-01-04] VITALS: Ht 365.8 cm; Wt 100.7 kg
[~2024-01-04 19:24] MED LIST: LASIX40 MG PO; NORVASC10 MG PO
[2024-01-04 19:42] VITALS: TEMP 98.8
[2024-01-04 20:01] LABS: BASOPHILS % 0.4 % (0.0-1.0); EOSINOPHILS # (AUTO) 0.1 (0.0-0.4); EOSINOPHILS % 0.8 % (0.0-6.0); HEMATOCRIT 33.9 % (38.2-49.6); HEMOGLOBIN 11.6 g/dL (14.0-18.0); LYMPHOCYTES # (AUTO) 1.7 (1.0-3.2); LYMPHOCYTES % 17.3 % (18.0-39.1); MEAN CORPUSCULAR HEMOGLOBIN 32.5 pg (28-32); MEAN CORPUSCULAR HGB CONC 34.2 g/dL (31-35); MONOCYTES # (AUTO) 0.9 (0.2-0.8); MONOCYTES % 8.6 % (4.4-11.3); NEUTROPHILS # (AUTO) 7.3 (2.1-6.9); NEUTROPHILS % 72.5 % (38.7-80.0); PLATELET COUNT 228 x10e3/uL (140-360); RED BLOOD COUNT 3.57 x10e6/uL (4.3-5.7); RED CELL DISTRIBUTION WIDTH 13.8 % (11.7-14.4); WHITE BLOOD COUNT 10.08 x10e3/uL (4.8-10.8)
[2024-01-04] MEDS: ONDANSETRON HCL INJ 2MG/ML 2ML 2 MG/ML VIAL IV STA (20:07)
[2024-01-04] MEDS: DICYCLOMINE HCL 20 MG/2 ML VIAL IM ONE (20:08)
[2024-01-04 20:24] LABS: ALBUMIN 4.3 g/dL (3.5-5.0); ALBUMIN/GLOBULIN RATIO 1.1 (0.8-2.0); ANION GAP 17.3 mmol/L (8-16); BILIRUBIN,TOTAL 0.5 mg/dL (0.2-1.2); CALCIUM 9.9 mg/dL (8.4-10.2); CREATININE, SERUM 3.1 mg/dL (0.72-1.25); POTASSIUM 4.3 mmol/L (3.5-5.1); TOTAL PROTEIN 8.2 g/dL (6.5-8.1)
[2024-01-04 22:03] VITALS: PULSE 64; RESP 19
[2024-01-04 22:33] LABS: CLARITY,URINE CLEAR (CLEAR); COLOR,URINE YELLOW (YELLOW); GLUCOSE, URINE NEGATIVE (NEGATIVE); KETONES,URINE NEGATIVE (NEGATIVE); LEUKOCYTE ESTERASE ,URINE NEGATIVE (NEGATIVE); NITRITE,URINE NEGATIVE (NEGATIVE); PH,URINE 5.5 (5 - 7); PROTEIN,URINE DIPSTICK >=300 (NEGATIVE)
[2024-01-04 22:34] LABS: BILIRUBIN,URINE NEGATIVE (NEGATIVE); URINE UROBILINOGEN 0.2 mg/dL (0.2 - 1)
[2024-01-04 22:55] LABS: BACTERIA,URINE MANY /HPF; EPITHELIAL CELLS,URINE FEW /LPF; RBC,URINE 0-5 /HPF (0-5); WBC,URINE (MAN) 0-5 /HPF (0-5)
[2024-01-04 22:57] VITALS: BP 162/97; PULSE 60; RESP 17; TEMP 98.3; O2SAT 100
[2024-01-04] MEDS ORDERED: NORVASC10 MG PO (23:00)
[2024-01-04] MEDS ORDERED: ONDANSETRON ODT4 MG SL (23:00)
[2024-01-04] MEDS ORDERED: DICYCLOMINE HCL20 MG PO (23:00)
== END 2024-01-04 23:12 | disposition home or self-care (01) ==
LOC: ER 19:48
DX: R10.11 Right upper quadrant pain (principal); K74.60 Unspecified cirrhosis of liver; K40.90 Unilateral inguinal hernia, without obstruction or gangrene, not specified as recurrent; R11.2 Nausea with vomiting, unspecified; I12.9 Hypertensive chronic kidney disease with stage 1 through stage 4 chronic kidney disease, or unspecified chronic kidney disease; N18.9 Chronic kidney disease, unspecified; G62.9 Polyneuropathy, unspecified; F17.210 Nicotine dependence, cigarettes, uncomplicated
CPT/HCPCS: 36415; 76705; 80053; 81001; 83690; 85025; 99283; J0500; J2405; J2470